=== PATIENT | male | born 1970 | race Caucasian/White ===

== ENCOUNTER 2017-01-03 13:00 | Inpatient (IN) | payer MEDICARE ==
[~2017-01-03] VITALS: Ht 165.1 cm; Wt 69.9 kg
--- NOTE | ~2017-01-03 | HP ---
Unit #: [id number] #: [id number] Patient: GELACIO HAJI [id number] [place] [address] [id number] MR#: [id number] NAME: GELACIO HAJI ROOM: [facility] Age: 46 Sex: M Admission Date: 01/03/2017 : 1970 Attending Physician: Jonah Almanza M.D. Admitting Physician: Jonah Almanza M.D. Primary Care Physician: Primary Care Physician No HISTORY AND PHYSICAL HISTORY OF PRESENT ILLNESS Gelacio is a 46 year old admitted to [facility] with depression and verbalizing wanting to hurt himself. PAST MEDICAL HISTORY 1. High blood pressure. 2. Hyperlipidemia. 3. Osteoarthritis. PAST SURGICAL HISTORY Nothing reported. ALLERGIES No known drug allergies. SOCIAL HISTORY He denies cigarettes, alcohol and illicit drug use. FAMILY HISTORY Medically noncontributory. REVIEW OF SYSTEMS CONSTITUTIONAL: No fever or chills. HEENT: Denies any sore throat, ear pain or runny nose. CARDIOVASCULAR: Denies chest pain, irregular heart rhythm or palpitations. CHEST: Denies shortness of breath or cough. No hemoptysis. GASTROINTESTINAL: Denies nausea, vomiting, diarrhea or chronic constipation. ENDOCRINE: Denies history of increased thirst or urination. No recent significant weight loss or gain. GENITOURINARY: Denies dysuria, frequency, or hematuria. SKIN: Denies any rashes. HEMATOLOGIC: Denies history of increased bleeding or bruising. MUSCULOSKELETAL: Denies any hot, swollen joints. No generalized muscle pain. NEUROLOGIC: Denies problems with vision or speech. No frequent, severe headaches. No numbness, tingling or weakness in any extremities. Denies loss of bladder or bowel control. CURRENT MEDICATIONS 1. Desyrel 100 mg q.h.s. p.r.n. 2. Milk of Magnesia p.r.n. 3. Maalox p.r.n. Unit #: [id number] #: [id number] Patient: GELACIO HAJI 4. Tylenol p.r.n. 5. Multivitamin 1 daily. PHYSICAL EXAMINATION GENERAL: Alert, well-nourished, in no apparent distress. VITAL SIGNS: Blood pressure 132/84, heart rate 70, respirations 16, temperature 98.6. WEIGHT: 154. HEIGHT: 5 feet 5 inches. SKIN: Warm and dry without rash or lesion. HEENT: Normocephalic. TMs not viewed. Oral and nasal passages clear. Conjunctivae clear. PERRLA. EOMs intact. NECK: Supple without lymphadenopathy or thyromegaly. HEART: Regular rate and rhythm without murmur. LUNGS: Clear. ABDOMEN: Soft, nontender. : Not done. EXTREMITIES: No evidence of cyanosis, clubbing or edema. Moves all without focal deficit. NEUROLOGICAL: Grossly within normal limits. Cranial Nerves: II: Visual pro are intact. III, IV AND : Extraocular movements are intact. Pupils are equal, round and reactive to light. V: Facial sensation is grossly normal. VII: Facial movements and expression are normal. VIII: Auditory acuity grossly intact. IX, X: Uvula is midline. Phonation is normal. XI: Patient shrugs shoulders and turns head normally. XII: Tongue protrudes in the midline. Sensory and Motor Function: Sensory and motor sensation is grossly normal. Motor: moves all extremities well. Coordination: Gait is normal. Deep Tendon Reflexes: Intact. IMPRESSION Psychiatric admission. RECOMMENDATIONS PSYCHIATRIC: Per psychiatrist. MEDICAL: See no contraindication to participate in facility's activities. MEDICAL PROGNOSIS Good. MEDICAL CONDITION Stable. Dictated by... Greg AndersonAIsaac. for Sergio Goodrich/irvin TD: 01/03/2017 20:54 JOB #: [id number] Unit #: [id number] #: [id number] Patient: GELACIO HAJI HISTORY AND PHYSICAL Page 1 of 1 X Isaura Fuentes HISTORY AND PHYSICAL
--- NOTE | ~2017-01-03 | PA ---
Unit #: [id number] #: [id number] Patient: GELACIO ROCHE [id number] [facility] [address] [place] [address] [id number] I MR#: [id number] NAME: GELACIO ROCHE ROOM: [facility] Age: 46 Sex: M Admission Date: 01/03/2017 : 1970 Date of Assessment: 01/03/2017 Attending Physician: Jonah Almanza M.D. Admitting Physician: Jonah Almanza M.D. Primary Care Physician: Primary Care Physician No PSYCHIATRIC ASSESSMENT DATE OF SERVICE 01/03/2017. IDENTIFYING DATA Mr. Roche is a 46-year-old single, disabled, white male with history of mood disorder, who is known to me from previous encounter, is a resident of [place], [place], and was self-referred to the hospital on a voluntary basis. CHIEF COMPLAINT "I've been off medication for a long time and I was constantly going downhill." HISTORY OF PRESENT ILLNESS Mr. Roche is a 46-year-old white male, who came to the hospital seeking treatment for major depressive disorder, stating that he has been off medication for a while and has been going downhill and has been having thoughts of suicide, but does not have an intent or plan and stated after he got help here and with other facilities, he has been able to have some improvement. He reported that he has moved out to [facility] and got a call in house, but the thoughts and the voices in his head and depression continues to overwhelm and reports that he cannot sleep and has no interest in doing anything or seeing other people and has no drive, only despair and reports that the more things improve for him he was able to ignore the voices, but reports the voices told him that he was nothing and no one loves him and he does not need to improve and reports increasing depression, anxiety, irritability, restlessness, feelings of hopelessness and helplessness, auditory hallucinations which are derogatory in nature and does report suicidal ideations and as such, recommendation for inpatient level of care for safety and stabilization was made. The patient was stepped up to the inpatient unit. SUBSTANCE ABUSE HISTORY The patient reports history of alcohol, cannabis, and cocaine abuse and reports that he has been drinking 8 to 9 beers occasionally and 2 joints on occasion, unknown amount of crack cocaine with the last use of all 3 substances within the last 3 days. PAST PSYCHIATRIC HISTORY The patient has had history of inpatient psychiatric hospitalization at [facility] along with ongoing outpatient psychiatric treatment. Review of the medical records indicate that he has been diagnosed and treated for mood disorder. He is supposed to be on a combination of Unit #: [id number] #: [id number] Patient: ROCHE,GELACIO Seroquel, Wellbutrin, and Depakote, but has been noncompliant with medications and as such, has been decompensating. PAST MEDICAL HISTORY The patient's medical history is significant for degenerative disk disease and asthma. ALLERGIES Trileptal. PERSONAL AND SOCIAL HISTORY A 46-year-old white male, who reports that he is single, disabled, and lives at home with his brother and has fairly decent social support system. MENTAL STATUS EXAMINATION Middle-aged white male who was casually dressed with fair personal hygiene, appears to be in no acute distress or discomfort. He was awake and alert on interaction with intact orientation to time, place, and person. His mood was anxious and depressed with a congruent affect. His speech was slow and restricted in content. His thought processes were disorganized with some looseness of associations and flight of ideas and suicidal ideations and auditory hallucinations. His insight and judgment remain significantly impaired. DIAGNOSTIC IMPRESSION Psychiatric: Bipolar disorder, most recent episode depressed, recurrent, moderate, with psychosis; alcohol abuse, moderate; cocaine abuse, moderate; cannabis abuse, moderate. Medical: Degenerative disk disease. Stressors: Moderate psychosocial stressors. TREATMENT PLAN 1. The patient has presented with history of mood disorder and substance abuse and has been decompensating and will need inpatient hospitalization for safety and stabilization. We will start him back on his home medications. We will adjust the medications and monitor response. 2. Supportive therapy was provided to the patient. 3. Safe, structured, and nourishing environment will be provided. ESTIMATED LENGTH OF STAY 5 to 7 days. ABILITY TO HELP SELF Limited. WILLINGNESS TO HELP SELF The patient appears to be willing to help self. STRENGTHS 1. Communicative. 2. Cooperative. PROBLEMS 1. Chronic dysphoric symptoms. 2. Chronic chemical dependency. 3. Poor social support system. DISCHARGE CRITERIA This will be contingent upon the patient's ability to show resolution of Unit #: [id number] #: [id number] Patient: GELACIO ROCHE his depression and anxiety and his ability to stay safe to himself, particularly after discharge from the hospital. Dictated by... Sergio Hirsch/kaylin TD: 01/04/2017 23:43 JOB #: [id number] PSYCHIATRIC ASSESSMENT Page 1 of 1 X Jonah Almanza MD PSYCHIATRIC ASSESSMENT
--- NOTE | ~2017-01-03 | DS ---
Unit #: [id number] #: [id number] Patient: [facility]HE [id number] [facility] [address] [place] [address] [id number] I MR#: [id number] NAME: GELACIO ROCHE ROOM: [facility] Age: 46 Sex: M Admission Date: 01/03/2017 : 1970 Discharge Date: 01/09/2017 Attending Physician: Jonah Almanza M.D. Primary Care Physician: Primary Care Physician No DISCHARGE SUMMARY IDENTIFICATION DATA Mr. Roche is a 46-year-old single white male who is known to us from previous encounter and was self-referred to the hospital. DISCHARGE DIAGNOSES PSYCHIATRIC: Bipolar disorder, most recent episode, depressed, recurrent, moderate, without psychotic features. MEDICAL: Hypertension. Gastroesophageal reflux disease. STRESSORS: Mild psychosocial stressors. HISTORY OF PRESENT ILLNESS Same as in initial psychiatric evaluation. PAST PSYCHIATRIC HISTORY Same as in initial psychiatric evaluation. PAST MEDICAL HISTORY Same as in initial psychiatric evaluation. HOSPITAL COURSE The [facility] and was oriented to the hospital environment. Routine p.r.n. medications were initiated, and he was started back on his home medications, and medications were adjusted, and he was closely monitored. He was taking the medications regularly and was tolerating them fairly well and was able to show a small and therapeutic response to the medication adjustment and is willing to continue treatment on outpatient basis. As such it was decided that she will be kept on his current medications and will be discharged home. We will continue treatment on outpatient basis. DISCHARGE MEDICATIONS 1. Depakote ER 1500 mg at bedtime for bipolar. 2. Wellbutrin XL 300 mg in the morning for depression. 3. Seroquel 400 mg at bedtime for bipolar. CONDITION AT DISCHARGE Stable. PROGNOSIS Fair. Unit #: [id number] #: [id number] Patient: GELACIO ROCHE Dictated by... Sergio Hirsch/mook TD: 01/12/2017 09:26 JOB #: [id number] DISCHARGE SUMMARY Page 1 of 1 X Jonah Almanza MD X DISCHARGE SUMMARY
--- NOTE | ~2017-01-03 | PN ---
Unit #: [id number] #: [id number] Patient: GELACIO HAJI [id number] [facility] [address] [place] [address] [id number] I MR#: [id number] NAME: GELACIO HAJI ROOM: [facility] Age: 46 Sex: M Admission Date: 01/03/2017 : 1970 Attending Physician: Jonah Almanza M.D. Admitting Physician: Jonah Almanza M.D. Primary Care Physician: Primary Care Physician Ashlyn BOJORQUEZ NOTES DATE OF SERVICE: 01/07/2017 SUBJECTIVE Mr. Haji is a 46-year-old white male, who was seen today and chart was reviewed, and case was discussed with the staff. He has been anxious, withdrawn, and rather seclusive to himself. Meanwhile, he has been cooperative with treatment recommendation and has been taking medications and tolerating them fairly well. MENTAL STATUS EXAMINATION Middle-aged white male, who was casually dressed with fair personal hygiene, appears to be in no acute distress or discomfort. He was awake and alert on interaction with intact orientation. His mood was anxious with a congruent affect. He denies any suicidal or homicidal ideation. His insight and judgment remain significantly impaired. TREATMENT PLAN 1. We will continue his current medications and treatment protocol. We will monitor his response to medications and make further adjustments as needed. 2. We will continue to follow up. Dictated by... Sergio Hirsch/annal TD: 01/10/2017 01:07 JOB #: [id number] [facility] PROGRESS NOTES Page 1 of 1 X Jonah Almanza MD PROGRESS NOTE
--- NOTE | ~2017-01-03 | PN ---
Unit #: [id number] #: [id number] Patient: GELACIO HAJI [id number] [facility] [address] [place] [address] [id number] I MR#: [id number] NAME: GELACIO HAJI ROOM: [facility] Age: 46 Sex: M Admission Date: 01/03/2017 : 1970 Attending Physician: Jonah Almanza M.D. Admitting Physician: Jonah Almanza M.D. Primary Care Physician: Primary Care Physician Ashlyn BOJORQUEZ NOTES DATE OF SERVICE 01/08/2017 DISCUSSION Mr. Haji is a 46-year-old, white male who was seen today and chart was reviewed and case was discussed with the staff. He has been anxious, withdrawn, rather seclusive to himself. Meanwhile, he has been cooperative with treatment recommendations. He has been taking medications and tolerating them fairly well with no reported side effects. MENTAL STATUS EXAM Middle-aged white male who was casually dressed with fair personal hygiene, appears to be in no acute distress or discomfort. He was awake and alert on interaction with intact orientation. His mood was anxious with congruent affect. He denies any suicidal or homicidal ideation. His insight and judgement remains slightly impaired. TREATMENT PLAN 1. We will continue him on his current treatment protocol. We will monitor his response to the medication. We make further adjustments as needed. 2. We will continue to follow up. Dictated by... Sergio Hirsch/richard TD: 01/10/2017 02:47 JOB #: [id number] Unit #: [id number] #: [id number] Patient: GELACIO HAJI PROGRESS NOTES Page 1 of 1 X Jonah Almanza MD X PROGRESS NOTE
--- NOTE | ~2017-01-03 | PN ---
Unit #: [id number] #: [id number] Patient: GELACIO HAJI [id number] [facility] [address] [place] [address] [id number] I MR#: [id number] NAME: GELACIO HAJI ROOM: [facility] Age: 46 Sex: M Admission Date: 01/03/2017 : 1970 Attending Physician: Jonah Almanza M.D. Admitting Physician: Jonah Almanza M.D. Primary Care Physician: Primary Care Physician Ashlyn ONEIL PROGRESS NOTES DATE 01/05/2017 DISCUSSION Mr. Haji is a 46-year-old male who was seen today and chart was reviewed and case was discussed with the staff. He has been anxious, withdrawn and rather seclusive to himself. Meanwhile, he has been cooperative with treatment recommendations and has been taking medications and tolerating them fairly well with no reported side effects. MENTAL STATUS EXAMINATION Middle-aged white male who was casually dressed with fair personal hygiene and appears to be in no acute distress or discomfort. He was awake and alert with impaired attention and concentration. His mood was anxious with a congruent affect. His speech is slow and restricted in content. His thought processes were disorganized with some looseness of associations and auditory hallucinations. His insight and judgement remains slightly impaired. TREATMENT PLAN 1. Will continue him on his current medications and treatment protocol. Will monitor his response to medications and make further adjustments as needed. 2. Will continue to follow up. Dictated by... Sergio Hirsch/irvin TD: 01/05/2017 15:04 JOB #: [id number] Unit #: [id number] #: [id number] Patient: GELACIO HAJI PROGRESS NOTES Page 1 of 1 X Jonah Almanza MD PROGRESS NOTE
--- NOTE | ~2017-01-03 | PN ---
Unit #: [id number] #: [id number] Patient: GELACIO HAJI [id number] [facility] [address] [place] [address] [id number] I MR#: [id number] NAME: GELACIO HAJI ROOM: [facility] Age: 46 Sex: M Admission Date: 01/03/2017 : 1970 Attending Physician: Jonah Almanza M.D. Admitting Physician: Jonah Almanza M.D. Primary Care Physician: Primary Care Physician Ashlyn ONEIL PROGRESS NOTES DATE OF SERVICE: 01/04/2017 SUBJECTIVE Mr. Haji is a 46-year-old white male, who was seen today and chart was reviewed, and case was discussed with the staff. He has been anxious, withdrawn, and rather seclusive to himself. Meanwhile, he has been cooperative with treatment recommendation and has been taking medication and tolerating them fairly well with no reported side effects. MENTAL STATUS EXAMINATION Middle-aged white male who was casually dressed with fair personal hygiene, appears to be in no acute distress or discomfort. He was awake and alert on interaction with intact orientation. His mood was anxious and depressed with a congruent affect. His speech was slow and goal directed. He reports having suicidal ideations, and auditory hallucinations. His insight and judgment remain significantly impaired. TREATMENT PLAN 1. We will continue on his current medications and treatment protocol. We will monitor his response to medications and make further adjustments as needed. 2. We will continue to follow up. Dictated by... Sergio Hirsch/kaylin TD: 01/04/2017 23:58 JOB #: [id number] [facility] PROGRESS NOTES Page 1 of 1 X Jonah Almanza MD PROGRESS NOTE
--- NOTE | ~2017-01-03 | PN ---
Unit #: [id number] #: [id number] Patient: GELACIO HAJI [id number] [facility] [address] [place] [address] [id number] I MR#: [id number] NAME: GELACIO HAJI ROOM: [facility] Age: 46 Sex: M Admission Date: 01/03/2017 : 1970 Attending Physician: Jonah Almanza M.D. Admitting Physician: Jonah Almanza M.D. Primary Care Physician: Primary Care Physician Ashlyn ONEIL PROGRESS NOTES DATE 01/06/2017 DISCUSSION Mr. Haji is a 46-year-old white male who was seen today and chart was reviewed and case was discussed with the staff. He has been anxious, withdrawn and rather seclusive to himself. Meanwhile, he has been cooperative with treatment recommendations and has been taking medications and tolerating them fairly well with no reported side effects. MENTAL STATUS EXAMINATION Middle-aged white male who was casually dressed with fair personal hygiene and appears to be in slight distress and discomfort. He was awake and alert with intact orientation. His mood was anxious and depressed with congruent affect. He reports persistent auditory hallucinations and suicidal ideations. His insight and judgement remains slightly impaired. TREATMENT PLAN 1. Will continue on his current medications and treatment protocol as well as his level of precaution ____ response to treatment interventions. Will make further adjustments as needed. 2. Will continue to follow up. Dictated by... Sergio Hirsch/irvin TD: 01/06/2017 21:06 JOB #: [id number] Unit #: [id number] #: [id number] Patient: GELACIO HAJI PROGRESS NOTES Page 1 of 1 X Jonah Almanza MD PROGRESS NOTE
[2017-01-04 13:11] LABS: URINE APPEARANCE CLEAR; URINE BILIRUBIN NEG (NEG); URINE BLOOD NEG (NEG); URINE COLOR YELLOW; URINE GLUCOSE NEG (NEG); URINE KETONE NEG (NEG); URINE LEUKOCYTE ESTERASE NEG (NEG); URINE NITRATE NEG (NEG); URINE PH 5.5 (5-8); URINE PROTEIN NEG (NEG); URINE UROBILINOGEN 0.2 MG/DL (NEG)
[2017-01-04 13:31] LABS: AMPHETAMINE NEG (NEG); BARBITURATES NEG (NEG); BENZODIAZEPINES NEG (NEG); COCAINE POS (NEG); MARIJUANA NEG (NEG); OPIATES NEG (NEG); TRICYCLIC ANTIDEPRESSANTS NEG (NEG); U METHADONE NEG (NEG)
[2017-01-05 18:02] LABS: BASOPHIL# 0.1 X10e3 (0-0.3); BASOPHIL% 0.9 % (0-2.5); EOSINOPHIL# 0.4 X10e3 (0-0.7); EOSINOPHIL% 4.9 % (0.0-7.0); HEMATOCRIT 41.2 % (38.0-50.0); HEMOGLOBIN 14.1 gm/dL (13.0-16.0); LYMPHOCYTE# 2.2 X10e3 (1.0-3.5); LYMPHOCYTE% 30.7 % (17.0-45.0); MEAN CELL VOLUME 88.6 FL (83-96); MEAN CORPUSCULAR HEMOGLOBIN 30.4 PG (28-34); MEAN CORPUSCULAR HGB CONC 34.3 g/dL (30-36); MEAN PLATELET VOLUME 8.7 FL (6.5-11.5); MONOCYTE# 0.4 X10e3 (0-1.0); MONOCYTE% 5.6 % (3.0-12.0); NEUTROPHIL# 4.2 X10e3 (1.5-7.1); NEUTROPHIL% 57.9 % (40-75); PLATELET COUNT 283 X10e3 (140-420); RED BLOOD COUNT 4.65 X10e (3.90-5.60); RED CELL DISTRIBUTION WIDTH 13.2 % (11.0-15.5); WHITE BLOOD COUNT 7.3 X10e3 (4.0-10.5)
[2017-01-05 18:06] LABS: DIFF IND NO
[2017-01-05 18:27] LABS: ALBUMIN SERUM 4.3 g/dL (3.5-5.0); BILIRUBIN,TOTAL 0.8 mg/dL (0.2-2.0); CALCIUM SERUM 9.5 mg/dL (8.4-10.2); GLOM FILT RATE Estimated 90.5 mL/min (>60); POTASSIUM 4.2 mmol/L (3.5-5.1); PROTEIN TOTAL SERUM 7.3 g/dL (6.0-8.3)
== END 2017-01-09 13:00 | disposition home or self-care (01) | DRG 885 ==
LOC: P2L 15:30
PROVIDERS: Psychiatry & Neurology Psychiatry
DX: F31.32 Bipolar disorder, current episode depressed, moderate (principal); I10 Essential (primary) hypertension; F14.10 Cocaine abuse, uncomplicated; F10.10 Alcohol abuse, uncomplicated; F12.10 Cannabis abuse, uncomplicated; K21.9 Gastro-esophageal reflux disease without esophagitis
CPT/HCPCS: 80053; 80307; 81003; 85025